=== PATIENT | male | born 1995 | race Caucasian/White ===

== ENCOUNTER 2023-04-05 08:41 | Emergency (ER) | payer OTHER ==
[~2023-04-05] VITALS: Ht 170.2 cm; Wt 87.1 kg
[2023-04-05] MEDS ORDERED: IBUPROFEN 600 MG TABLET ONE (08:58)
[2023-04-05] MEDS ORDERED: IBUPROFEN 600 MG TABLET PO ONE (09:00)
[2023-04-05] MEDS ORDERED: IBUP-1957 PO (09:28)
[2023-04-05 09:37] VITALS: BP 122/78; TEMP 97.9; O2SAT 99
== END 2023-04-05 09:38 | disposition home or self-care (01) ==
LOC: ER 08:41
DX: S63.92XA Sprain of unspecified part of left wrist and hand, initial encounter (principal); V89.2XXA Person injured in unspecified motor-vehicle accident, traffic, initial encounter; Y93.89 Activity, other specified; Y92.89 Other specified places as the place of occurrence of the external cause; Y99.8 Other external cause status
CPT/HCPCS: 73130-TC